=== PATIENT | female | born 1985 | race Caucasian/White ===

== ENCOUNTER 2017-09-09 07:10 | Emergency (ER) | payer SELFPAY ==
[2017-09-09] MEDS ORDERED: Ketorolac INJ* 30 MG/ML 1 ML VIAL IV ONE (08:02)
[2017-09-09] MEDS ORDERED: NS 0.9% 1000 ML* 1,000 ML IV ONE (08:02)
[2017-09-09] MEDS ORDERED: Ketorolac INJ* 30 MG/ML 1 ML VIAL ONE (08:03)
[2017-09-09 08:25] LABS: ABS Basophils 0 10^3/ul (0-0.2); ABS Eosinophils 0.1 10^3/ul (0-0.6); ABS Lymphocytes 1.1 10^3/ul (1.0-4.8); ABS Monocytes 0.9 10^3/ul (0-0.8); ABS Neutrophils 9.2 10^3/ul (1.5-7.7); ABS Nucleated RBC 0 10^3/ul; Eosinophil % 1.1 % (0-6); Hematocrit 39 % (35-47); Hemoglobin 13.5 g/dl (12.0-16.0); Lymphocyte % 9.6 % (25-47); Mean Corpuscular HGB Conc 34 g/dl (31-36); Mean Corpuscular Hemoglobin 31 pg (27-31); Mean Corpuscular Volume 91 fL (80-97); Mean Platelet Volume 8 um3 (7.4-10.4); Nucleated Red Blood Cells % 0; Platelet Count 176 10^3/ul (150-450); Red Blood Count 4.34 10^6/ul (4.0-5.4); Red Cell Distribution Width 13 % (10.5-15); White Blood Count 11.4 10^3/ul (3.5-10.8)
[2017-09-09 08:41] LABS: EGFR Non-African American 116.7 (>60)
[2017-09-09 09:08] LABS: INR 1.05 (0.77-1.02)
--- NOTE | 2017-09-09 09:15 | RAD ---
Indication: Right chest pain. 2 views of the chest including dual energy PA views demonstrates no mediastinal shift. Heart is of normal size and configuration. Lung johnson demonstrate no pleural fluid, pneumonia or pneumothorax. IMPRESSION: No active cardiopulmonary disease is noted.
[2017-09-09] MEDS ORDERED: Azithromycin TAB* 250 MG PO ONE (09:55)
--- NOTE | 2017-09-09 10:01 | ED ---
Aaron Barr Abhishek, scribed for Lazarus Justice MD on 09/09/17 at 0804 . HPI Chest Pain - HPI Summary HPI Summary: This patient is a 32 year old F presenting to [facility] with a c/o of a cough with chest pain. The cough began two weeks ago and the CP began 2 days ago (1200 on 09/07/17). The pain is described as sharp. The pt describes the cough as productive at first but states cough is reduced and currently not productive. The onset of coughing was two weeks ago and has a sharp chest pain. The pain radiates to the back. The patient rates the pain 9/10 in severity. Symptoms aggravated by breathing, and movement. Symptoms alleviated by nothing. Pt is allergic to bupropion and vancomycin. Patient reports sore throat and fevers at onset of cough. The pt currently reports difficulty breathing due to pain, as well as wheezing. - History of Current Complaint Chief Complaint: EDChestWallPain Time Seen by Provider: 09/09/17 07:19 Hx Obtained From: Patient Onset/Duration: Started Days Ago - 2 days of chest pain; (14 days of coughing) Timing: Constant, Lasting Days - 2 days of chest pain. (14 days of coughing) Current Severity: Severe Pain Intensity: 9 Pain Scale Used: 0-10 Numeric Chest Pain Location: Diffuse Chest Pain Radiates: Yes Chest Pain Radiates To:: Back Character: Cough, Non-Productive - (cough was previously productive), Sharp/ Stabbing Aggravating Factor(s): Movement, Deep Breaths Alleviating Factor(s): Nothing Associated Signs and Symptoms: Positive: Chest Pain, Fever - (onset of cough), Nonproductive Cough - (cough previously productive), Wheezing, Other: - sore throat (onset of cough), difficulty breathing - Allergy/Home Medications Allergies/Adverse Reactions: Allergies Allergy/AdvReac Type Severity Reaction Status Date / Time Bupropion [From Wellbutrin] Allergy Rash Verified 06/23/16 09:43 PMH/Surg Hx/FS Hx/Imm Hx Endocrine/Hematology History: Denies: Hx Diabetes, Hx Thyroid Disease Cardiovascular History: Denies: Hx Hypertension, Other Cardiovascular Problems/Disorders Respiratory History: Denies: Hx Asthma, Hx Chronic Obstructive Pulmonary Disease (COPD) GI History: Denies: Hx Ulcer Infectious Disease History: No Infectious Disease History: Denies: Hx Hepatitis, Hx Human Immunodeficiency Virus (HIV), Traveled Outside the [place] in Last 30 Days - Family History Known Family History: Negative: Cardiac Disease, Diabetes - Social History Alcohol Use: Occasionally Substance Use Type: Reports: Marijuana Smoking Status (MU): Heavy Every Day Tobacco Smoker Review of Systems Positive: Fever - onset of cough Eyes: Negative Positive: Sore Throat - onset of cough Positive: Chest Pain Positive: Cough - (previously productive, currently non-productive), Other - Difficulty breathing and wheezing Gastrointestinal: Negative Genitourinary: Negative Positive: Myalgia - back pain Skin: Negative Neurological: Negative Psychological: Normal All Other Systems Reviewed And Are Negative: Yes Physical Exam - Summary Physical Exam Summary: General: well-appearing, Mild pain distress with movement and deep breaths Skin: warm, color reflects adequate perfusion, dry Head: normal Eyes: EOMI, UNIQUE ENT: normal Neck: supple, nontender Respiratory: CTA, breath sounds present Cardiovascular: RRR Abdomen: soft, nontender Bowel: present Musculoskeletal: normal, strength/ROM intact Neurological: normal, sensory/motor intact, A&O x3 Psychological: affect/mood appropriate Triage Information Reviewed: Yes Vital Signs On Initial Exam: Initial Vitals Temp Pulse Resp BP Pulse Ox 98.2 F 80 20 120/56 100 09/09/17 07:11 09/09/17 07:11 09/09/17 07:11 09/09/17 07:11 09/09/17 07:11 Vital Signs Reviewed: Yes - [place] Coma Scale Coma Scale Total: 15 Diagnostics - Vital Signs Vital Signs Temp Pulse Resp BP Pulse Ox 09/09/17 07:22 78 21 98 09/09/17 07:21 117/66 09/09/17 07:11 98.2 F 80 20 120/56 100 - Laboratory Lab Results: Lab Results 09/09/17 09/09/17 09/09/17 Range/Units 07:54 08:16 08:16 WBC 11.4 H (3.5-10.8) 10^3/ul RBC 4.34 (4.0-5.4) 10^6/ul Hgb 13.5 (12.0-16.0) g/dl Hct 39 (35-47) % MCV 91 (80-97) fL MCH 31 (27-31) pg MCHC 34 (31-36) g/dl RDW 13 (10.5-15) % Plt Count 176 (150-450) 10^3/ul MPV 8 (7.4-10.4) um3 Neut % (Auto) 80.7 (38-83) % Lymph % (Auto) 9.6 L (25-47) % Ferry % (Auto) 8.3 (1-9) % Eos % (Auto) 1.1 (0-6) % Baso % (Auto) 0.3 (0-2) % Absolute Neuts (auto) 9.2 H (1.5-7.7) 10^3/ul Absolute Lymphs (auto) 1.1 (1.0-4.8) 10^3/ul Absolute Monos (auto) 0.9 H (0-0.8) 10^3/ul Absolute Eos (auto) 0.1 (0-0.6) 10^3/ul Absolute Basos (auto) 0 (0-0.2) 10^3/ul Absolute Nucleated RBC 0 10^3/ul Nucleated RBC % 0 INR (Anticoag Therapy) (0.77-1.02) APTT (26.0-36.3) seconds D-Dimer, Quantitative (Less Than 230) ng/mL Sodium 134 (133-145) mmol/L Potassium 3.6 (3.5-5.0) mmol/L Chloride 103 (101-111) mmol/L Carbon Dioxide 27 (22-32) mmol/L Anion Gap 4 (2-11) mmol/L BUN 10 (6-24) mg/dL Creatinine 0.59 (0.51-0.95) mg/dL Est GFR ( Amer) 150.1 (>60) Est GFR (Non-Af Amer) 116.7 (>60) BUN/Creatinine Ratio 16.9 (8-20) Glucose 93 (70-100) mg/dL Lactic Acid (0.5-2.0) mmol/L Calcium 9.0 (8.6-10.3) mg/dL Magnesium 1.8 L (1.9-2.7) mg/dL Total Bilirubin 0.60 (0.2-1.0) mg/dL AST 13 (13-39) U/L ALT 10 (7-52) U/L Alkaline Phosphatase 60 (34-104) U/L Total Creatine Kinase 41 (10-223) U/L CK-MB (CK-2) 1.2 (0.6-6.3) ng/mL Troponin I 0.00 (<0.04) ng/mL C-Reactive Protein 19.14 H (< 5.00) mg/L B-Natriuretic Peptide ( - 100) pg/mL Total Protein 7.2 (6.4-8.9) g/dL Albumin 4.2 (3.2-5.2) g/dL Globulin 3.0 (2-4) g/dL Albumin/Globulin Ratio 1.4 (1-3) Lipase 19 (11.0-82.0) U/L TSH 1.07 (0.34-5.60) mcIU/mL Beta HCG, Quant < 0.60 mIU/mL Influenza A (Rapid) Negative (Negative) Influenza B (Rapid) Negative (Negative) 09/09/17 09/09/17 09/09/17 Range/Units 08:16 08:16 08:40 WBC (3.5-10.8) 10^3/ul RBC (4.0-5.4) 10^6/ul Hgb (12.0-16.0) g/dl Hct (35-47) % MCV (80-97) fL MCH (27-31) pg MCHC (31-36) g/dl RDW (10.5-15) % Plt Count (150-450) 10^3/ul MPV (7.4-10.4) um3 Neut % (Auto) (38-83) % Lymph % (Auto) (25-47) % Ferry % (Auto) (1-9) % Eos % (Auto) (0-6) % Baso % (Auto) (0-2) % Absolute Neuts (auto) (1.5-7.7) 10^3/ul Absolute Lymphs (auto) (1.0-4.8) 10^3/ul Absolute Monos (auto) (0-0.8) 10^3/ul Absolute Eos (auto) (0-0.6) 10^3/ul Absolute Basos (auto) (0-0.2) 10^3/ul Absolute Nucleated RBC 10^3/ul Nucleated RBC % INR (Anticoag Therapy) 1.05 H (0.77-1.02) APTT 42.4 H (26.0-36.3) seconds D-Dimer, Quantitative 209 (Less Than 230) ng/mL Sodium (133-145) mmol/L Potassium (3.5-5.0) mmol/L Chloride (101-111) mmol/L Carbon Dioxide (22-32) mmol/L Anion Gap (2-11) mmol/L BUN (6-24) mg/dL Creatinine (0.51-0.95) mg/dL Est GFR ( Amer) (>60) Est GFR (Non-Af Amer) (>60) BUN/Creatinine Ratio (8-20) Glucose (70-100) mg/dL Lactic Acid 0.4 L (0.5-2.0) mmol/L Calcium (8.6-10.3) mg/dL Magnesium (1.9-2.7) mg/dL Total Bilirubin (0.2-1.0) mg/dL AST (13-39) U/L ALT (7-52) U/L Alkaline Phosphatase (34-104) U/L Total Creatine Kinase (10-223) U/L CK-MB (CK-2) (0.6-6.3) ng/mL Troponin I (<0.04) ng/mL C-Reactive Protein (< 5.00) mg/L B-Natriuretic Peptide 22 ( - 100) pg/mL Total Protein (6.4-8.9) g/dL Albumin (3.2-5.2) g/dL Globulin (2-4) g/dL Albumin/Globulin Ratio (1-3) Lipase (11.0-82.0) U/L TSH (0.34-5.60) mcIU/mL Beta HCG, Quant mIU/mL Influenza A (Rapid) (Negative) Influenza B (Rapid) (Negative) Result Diagrams: 09/09/17 08:16 09/09/17 08:16 Lab Statement: Any lab studies that have been ordered have been reviewed, and results considered in the medical decision making process. - Radiology Chest x-ray Radiology Interpretation Completed By: Radiologist - CXR reveals, per radiologist, No active cardiopulmonary disease is noted. ED physician has reviewed this radiology report and agrees. - EKG 0724 EKG Rhythm: Sinus Rhythm - [address] Segment: Normal EKG Interpretation: EKG at 0724 reveals no ectopy Chest Pain Course/Dx - Course Course Of Treatment: 2 WEEKS OF COUGH AND UTI SX. NO FHX OF PE/DVT. NO CALF PAIN. NEGATIVE DDIMER. USES VAPE BUT, NOT A SMOKER. RX ZPAC. PATIENT DECLINES ALBUTEROL AT THIS TIME. DISCUSSED RESULTS AND TO GET RECHECKED IF NOT IMPROVED OR WORSENS. F/U PMD; RETURN IF WORSE. - Diagnoses Provider Diagnoses: Chest pain, Bronchitis Discharge - Discharge Plan Condition: Stable Disposition: HOME Prescriptions: Azithromycin TAB* [Zithromax TAB (Z-MELISSA) 250 mg #6 tabs] 250 mg PO DAILY #4 tab Patient Education Materials: Chest Pain (ED), Acute Bronchitis (ED) Forms: *Work Release Referrals: Roxana Cao [Primary Care Provider] - Additional Instructions: FOLLOW UP WITH YOUR DOCTOR. RETURN TO THE EMERGENCY DEPARTMENT FOR ANY WORSENING OF YOUR CONDITION; CHEST PAIN, SHORTNESS OF BREATH, YOU FEEL ILL OR QUESTIONS OR CONCERNS. The documentation as recorded by the Aaron moreland Abhishek accurately reflects the service I personally performed and the decisions made by me, Lazarus Justice MD.
[2017-09-09 10:20] VITALS: BP 107/57
== END 2017-09-09 10:18 | disposition home or self-care (01) ==
LOC: ED 07:10
DX: J40 Bronchitis, not specified as acute or chronic (principal); R07.9 Chest pain, unspecified; F17.200 Nicotine dependence, unspecified, uncomplicated
CPT/HCPCS: 36415; 71020; 80053; 82550; 82553; 83605; 83690; 83735; 83880; 84443; 84484; 84702; 85025; 85379; 85610; 85730; 86140; 87040; 87502; 93005; 96361; 96374; 99283; A9270-GY; J1885